=== PATIENT | female | born 1970 | race Caucasian/White ===

== ENCOUNTER 2021-03-13 11:24 | Emergency (ER) | payer OTHER ==
[~2021-03-13] VITALS: Ht 157.5 cm; Wt 78.5 kg
[2021-03-13] MEDS ORDERED: PRINIVIL20 MG PO (11:44)
[2021-03-13] MEDS ORDERED: JANUVIA50 MG PO (11:44)
[2021-03-13] MEDS ORDERED: METFORMIN HCL500 MG PO (11:44)
[2021-03-13] MEDS ORDERED: SIMVASTATIN10 MG PO (11:45)
[2021-03-13] MEDS ORDERED: ELIQUIS5 MG PO (13:22)
== END 2021-03-13 14:13 | disposition home or self-care (01) ==
LOC: ED 11:24
DX: I82.432 Acute embolism and thrombosis of left popliteal vein (principal); I82.4Z2 Acute embolism and thrombosis of unspecified deep veins of left distal lower extremity; I82.412 Acute embolism and thrombosis of left femoral vein; E11.9 Type 2 diabetes mellitus without complications; Z88.5 Allergy status to narcotic agent; Z88.0 Allergy status to penicillin; Z79.899 Other long term (current) drug therapy; Z79.84 Long term (current) use of oral hypoglycemic drugs
CPT/HCPCS: 93971; 99283-25